=== PATIENT | male | born 1995 | race Caucasian/White ===

== ENCOUNTER 2019-12-13 06:15 | Emergency (ER) | payer OTHER ==
[~2019-12-13] VITALS: Ht 170.2 cm; Wt 59.0 kg
[2019-12-13 06:15] VITALS: BP 121/43
[~2019-12-13 06:15] MED LIST: DEXT30CA6 PO
--- NOTE | 2019-12-13 06:28 | PHYS DOC ---
Past History Past Medical History: Anxiety, Asthma Past Surgical History: No Surgical History Smoking: Cigarettes, Less than 1pk/day Alcohol Use: None Drug Use: Marijuana General Adult EDM: Chief Complaint: Anxiety HPI: HPI: 24-year-old male presents with report of anxiety about his health. Reports concerned that he might have herpes. Reports he has had several episodes of "sores "near his genital region. Reports seems to occur after he has been out in the heat working. Denies penile discharge or dysuria. Denies testicular pain. Denies vesicular lesions. Patient reports over the past several days he has not been able to eat because his anxiety has been so severe. Patient does r eport some associated nausea and has vomited. Denies abdominal pain. Denies fever or chills. Reports concerned that he has a girl he is interested in but is concerned that he might give her an STD. Review of Systems: Review of Systems: Constitutional: Denies fever or chills Eyes: Denies redness or eye pain HENT: Denies nasal congestion or sore throat Respiratory: Denies cough or shortness of breath Cardiovascular: Denies chest pain or palpitations GI: Denies abdominal pain; reports nausea or vomiting : Denies dysuria or hematuria Musculoskeletal: Denies back pain or joint pain Integument: Denies rash; reports history of skin lesions which are not currently present Neurologic: Denies headache, focal weakness or sensory changes Complete systems were reviewed and found to be within normal limits, except as documented in this note. Allergies: Allergies: Allergies Coded Allergies Type Severity Reaction Last Updated Verified No Known Drug Allergies 04/02/14 No Physical Exam: PE: Constitutional: Well developed, well nourished, no acute distress, non-toxic appearance HENT: Normocephalic, atraumatic Eyes: Conjunctiva normal, no discharge Neck: Normal range of motion, no tenderness, supple Lungs & Thorax: No respiratory distress, equal chest rise and fall, tachypnea Abdomen: Soft, no tenderness Skin: Warm, dry, no erythema, no rash : Normal external genitalia, no penile discharge, cremasteric reflex intact Extremities: No tenderness, ROM intact, no edema Neurologic: Alert and oriented X 3, no focal deficits noted Psychologic: Affect anxious, judgment normal EKG: EKG: [] Radiology/Procedures: Radiology/Procedures: [] Course & Med Decision Making: Course & Med Decision Making Patient presents with HPI and physical exam consistent for anxiety attack. Concern he might have herpes. No herpetic lesions noted. Denies penile discharge or dysuria. External exam unremarkable. Patient extremely anxious. Patient shown pictures of herpetic lesions which he denies every having. Ativan and Zofran ODT provided. Patient reassured that it currently does not appear that he has an STD but to follow with his PCP and/or ED if he develops any further lesions for reassess ment. Patient stable for discharge with outpatient follow-up with PCP/mental health. Mental health referral provided. Discussed findings and plan with patient, who acknowledges understanding and agreement. Dragon Disclaimer: Dragon Disclaimer: This electronic medical record was generated, in whole or in part, using a voice recognition dictation system. Departure Departure: Impression: Primary Impression: Anxiety about health Additional Impression: Nausea & vomiting Qualified Codes: R11.2 - Nausea with vomiting, unspecified Disposition: HOME/RESIDENCE PRIOR TO ADM Condition: STABLE Referrals: PCP,ARELY (PCP) Patient Instructions: Anxiety and Panic Attacks, [id number], Clear Liquid Diet, [id number], Nausea and Vomiting, [id number] Scripts Ondansetron (ONDANSETRON ODT) 4 Mg Tab.rapdis 1 TAB PO PRN Q6-8HRS PRN for NAUSEA, #16 TAB Prov: ALTON LUCERO DO 12/13/19 Lorazepam (ATIVAN ) 0.5 Mg Tablet 0.5 MG PO PRN TID PRN for ANXIETY, #8 TAB Prov: ALTON LUCERO DO 12/13/19 Justification of Admission: Justification of Admission: Justification of Admission Dx: N/A ALTON LUCERO DO Dec 13, 2019 06:28
[2019-12-13] MEDS ORDERED: LORA0.5T21 PO (06:39)
[2019-12-13] MEDS ORDERED: ONDA4TAB12 PO (06:53)
[2019-12-13] MEDS ORDERED: LORazepam 1 MG TABLET PO ONE (07:00)
[2019-12-13] MEDS ORDERED: ONDANSETRON ODT 4 MG TAB.RAPDIS PO ONE (07:15)
== END 2019-12-13 07:09 | disposition home or self-care (01) ==
LOC: ER 06:15
DX: F41.9 Anxiety disorder, unspecified (principal); R11.2 Nausea with vomiting, unspecified; J45.909 Unspecified asthma, uncomplicated; F17.210 Nicotine dependence, cigarettes, uncomplicated
CPT/HCPCS: 99283; Q0162

== ENCOUNTER → 2021-02-07 | Outpatient (CLI) | payer BC ==
[~2021-02-07] MED LIST changes: +LORA0.5T21 PO; +ONDA4TAB12 PO
--- NOTE | 2021-02-07 09:58 | RAD ---
EXAM: Chest, 2 views. HISTORY: Chest pain. COMPARISON: None. FINDINGS: 2 views of the chest are obtained. There is a large left pneumothorax. There is slight dext ro positioning of the mediastinum favoring a tension pneumothorax. There is no infiltrate or pleural effusion. The heart is normal in size. IMPRESSION: Large left pneumothorax with tension component. These findings were discussed with Aurelia, the nurse caring for the patient, at 0950 hours on 02/07/2021. FOR INTERNAL CODING PURPOSES RESULT CODE: (C) Electronically signed by: Delphine Anne MD (02/07/2021 9:55 AM) [id number]
== END ==
LOC: RAD 09:22
PROVIDERS: ATTEND Internal Medicine
DX: J93.0 Spontaneous tension pneumothorax (principal)
CPT/HCPCS: 71046